=== PATIENT | male | born 1980 | race Caucasian/White ===

== ENCOUNTER 2019-08-05 15:24 | Emergency (ER) | payer OTHER, SELFPAY ==
[2019-08-05 15:32] VITALS: BP 152/79; PULSE 88; RESP 20; TEMP 36.4; O2SAT 95; BMI 54.5
[2019-08-05] MEDS: TET,DIPH,PERTUSS(ACELL),VAC/PF 0.5 ML SYRINGE IM (18:32)
--- NOTE | 2019-08-05 19:23 | ED.WOUNDLAC ---
HPI - Wound/Laceration <GINGER Barraza - Last Filed: 08/05/19 19:29> General Chief Complaint: Wound/Laceration Stated Complaint: states cut tip of thumb off right hand Time Seen by Provider: 08/05/19 18:13 Source: patient Mode of arrival: Ambulatory Limitations: no limitations History of Present Illness HPI narrative: The patient is a 39-year-old male current smoker who denies pertinent medical history presents with a chief complaint of a right thumb laceration. He accidentally sliced the tip of his right finger off while slicing meat. Does not know when his last tetanus was. He states he has full range of motion. States he is having trouble stopping the bleeding Related Data Home Medications Medication Instructions Recorded Confirmed No Known Home Medications 03/14/19 03/14/19 Previous Rx's Medication Instructions Recorded amoxicillin 875 mg-potassium 1 tab PO BID #20 tab 03/14/19 clavulanate 125 mg tablet Allergies Allergy/AdvReac Type Severity Reaction Status Date / Time bee venom protein (honey bee) Allergy Mild swelling Verified 08/05/19 15:32 where stung Review of Systems <GINGER Barraza - Last Filed: 08/05/19 19:29> Review of Systems Narrative: GENERAL: Denies chills, fatigue, malaise, fever, sweats. HEENT: Denies sinus pain, ear pain, sore throat, difficulty swallowing, dizziness. RESPIRATORY: Denies dyspnea, cough, wheezing, hemoptysis, sputum. CARDIOVASCULAR: Denies chest pain, palpitations, orthopnea, edema, GASTROINTESTINAL: Denies nausea, vomiting, abdominal pain, diarrhea, constipation, melena. : Denies dysuria, frequency, incontinence, hematuria, urinary retention. MUSCULOSKELETAL: denies weakness, joint pain, or bony pain SKIN: See HPI NEUROLOGIC: Denies weakness, headache, numbness, change in speech, confusion, seizures, incoordination. PSYCHIATRIC: No concerning psychosocial issues. 12 point review of systems is negative except for those stated above Patient History <GINGER Barraza - Last Filed: 08/05/19 19:29> Medical History (Updated 08/05/19 @ 18:41 by GINGER Barraza) Right otitis media with effusion (Acute) Social History Smoking Status: Current some day smoker Smoking Status: Current some day smoker Exam <GINGER Barraza - Last Filed: 08/05/19 19:29> Narrative Exam Narrative: GENERAL: Morbidly obese male in no acute distress HEAD: Atraumatic. Normocephalic. No temporal or scalp tenderness. EYES: Pupils equal round and reactive. Extraocular motions intact. No scleral icterus. No injection or drainage. ENT: Nose without bleeding, purulent drainage or septal hematoma.. Airway patent. CARDIOVASCULAR: Regular rate and rhythm RESPIRATORY: No cough. No increased respiratory effort. No accessory muscle use. EXTREMITIES: Full range of motion noted left thumb. Skin exam as noted. Positive right radial pulse. NEURO: AOx3. SKIN: Once 1 cm avulsion laceration noted to tip of right thumb on the fat pad. Oozing blood. Initial Vital Signs Initial Vital Signs: Vital Signs Temperature 97.5 F L 08/05/19 15:32 Pulse Rate 88 08/05/19 15:32 Respiratory Rate 08/05/19 15:32 Blood Pressure 152/79 H 08/05/19 15:32 Pulse Oximetry 95 08/05/19 15:32 <Sandro Huggins DO - Last Filed: 08/06/19 05:30> Initial Vital Signs Initial Vital Signs: Vital Signs Temperature 97.5 F L 08/05/19 15:32 Pulse Rate 88 08/05/19 15:32 Respiratory Rate 08/05/19 15:32 Blood Pressure 152/79 H 08/05/19 15:32 Pulse Oximetry 95 08/05/19 15:32 Course <GINGER Barraza - Last Filed: 08/05/19 19:29> Orders Ordered: Discontinued Medications Diphtheria/Tetanus/Acell Pertussis (Adacel) 0.5 ml IM .ONCE ONE Stop: 08/05/19 18:23 Last Admin: 08/05/19 18:32 Dose: 0.5 ml Documented by: JOSE Vital Signs Vital signs: Vital Signs - 8 hr 08/05/19 15:32 Temperature 97.5 F L Pulse Rate 88 Respiratory Rate 20 Blood Pressure 152/79 H Pulse Oximetry 95 <Sandro Huggins DO - Last Filed: 08/06/19 05:30> Orders Ordered: Discontinued Medications Diphtheria/Tetanus/Acell Pertussis (Adacel) 0.5 ml IM .ONCE ONE Stop: 08/05/19 18:23 Last Admin: 08/05/19 18:32 Dose: 0.5 ml Documented by: JOSE Vital Signs Vital signs: Vital Signs - 8 hr 08/05/19 15:32 Temperature 97.5 F L Pulse Rate 88 Respiratory Rate 20 Blood Pressure 152/79 H Pulse Oximetry 95 [facility] - Wound/Laceration <CRUZITO Barraza- - Last Filed: 08/05/19 19:29> [facility] Narrative Medical decision making narrative: The patient is a 39-year-old male who presents with a chief complaint of a finger avulsion. He declines any x-ray. Tetanus was up-to-date. Wound was dressed with Surgicel by nursing. Discussed at length monitoring for signs symptoms of infection. Patient has no questions or concerns upon discharge and states understanding return precautions as well as follow-up care. Discharge Plan Departure Patient Disposition: Home Clinical Impression: Avulsion of skin Discharge Date/Time: 08/05/19 18:59 Instructions: DI for Avulsion Laceration (Not Requiring Sutures), DI for Minor Laceration Activity Restrictions/Additional Instructions: Thank you for trusting us with your care today Today we updated your tetanus and dressed your wound Please follow-up with primary care provider in the next few days. Please monitor for sign of infection such as extending redness, purulent drainage etcetera Please come back to the emergency department for any acute concerns Prescriptions: No Action No Known Home Medications RF: 0 amoxicillin-pot clavulanate [Augmentin] 875-125 mg tablet 1 tab PO BID Qty: 20 RF: 0 Referrals: Jerman Elise MD [Primary Care Provider] - <Sandro Huggins DO - Last Filed: 08/06/19 05:30> Cosign ED Attending Ashlyature Attestation: I was immediately available in the department for consultation. This documentation has been reviewed and I agree with assessment and plan. Supervised by Sandro Huggins DO
== END 2019-08-05 18:59 | disposition home or self-care (01) ==
PROVIDERS: Emergency Provider Nurse Practitioner Family; Family Provider Family Medicine; PCP Family Medicine
DX: S61.011A Laceration without foreign body of right thumb without damage to nail, initial encounter (principal); W26.8XXA Contact with other sharp object(s), not elsewhere classified, initial encounter; Y99.0 Civilian activity done for income or pay
CPT/HCPCS: 90471; 99282; 99283; 90715

== ENCOUNTER 2022-10-09 14:32 | Emergency (ER) | payer OTHER, SELFPAY ==
[2022-10-09 14:35] VITALS: BP 143/79; PULSE 70; RESP 20; TEMP 37.1; O2SAT 96; BMI 57.7
--- NOTE | 2022-10-09 14:43 | ED_ITS ---
HPI - Abdominal Pain <Everett Horton PA-C - Last Filed: 10/09/22 17:12> General Chief Complaint: Abdominal Pain Stated Complaint: abd pain sent by [facility] Time Seen by Provider: 10/09/22 14:34 Source: patient Mode of arrival: Ambulatory History of Present Illness HPI narrative: This is a 42-year-old male presents emergency department due to abdominal pain. Patient was seen at the walk-in clinic with concerns for abdominal pain and bulging. States he is had a bulge in his abdomen for over a year. He reports multiple episodes of nausea and vomiting over the last week as well as a fever earlier this week which has since improved.. Denies any respiratory symptoms. He states that the nausea and vomiting cause him to strain more causing the abdominal bulge to worsen as well as give him some abdominal discomfort. Denies any significant abdominal pain but does report a sensation of fullness. States he used to be able to ?push it in and now? but has been unable to over the last month. Patient was sent to the emergency department for further evaluation. Last ate at 8:00 a.m. this morning. Related Data Home Medications Medication Instructions Recorded Confirmed No Known Home Medications 03/14/19 03/14/19 Previous Rx's Medication Instructions Recorded amoxicillin 875 mg-potassium 1 tab PO BID #20 tabs 03/14/19 clavulanate 125 mg tablet (Augmentin) Allergies Allergy/AdvReac Type Severity Reaction Status Date / Time bee venom protein (honey bee) Allergy Mild swelling Verified 08/05/19 15:32 where stung Review of Systems <Everett oHrton PA-C - Last Filed: 10/09/22 17:12> Review of Systems Narrative: GENERAL: Denies chills, fatigue, malaise, fever, sweats. HEENT: Denies sinus pain, ear pain, sore throat, difficulty swallowing, dizzi ness. RESPIRATORY: Denies dyspnea, cough, wheezing, hemoptysis, sputum. CARDIOVASCULAR: Denies chest pain, palpitations, orthopnea, edema, GASTROINTESTINAL: Reports abdominal bulging and discomfort, Denies nausea, vomiting, abdominal pain, diarrhea, constipation, melena. : Denies dysuria, frequency, incontinence, hematuria, urinary retention. MUSCULOSKELETAL: denies weakness, joint pain, or bony pain SKIN: Denies rash, skin lesions, or other NEUROLOGIC: Denies weakness, headache, numbness, change in speech, confusion, seizures, incoordination. PSYCHIATRIC: No concerning psychosocial issues. 12 point review of systems is negative except for those stated above Patient History <Everett Horton PA-C - Last Filed: 10/09/22 17:12> Medical History (Updated 10/09/22 @ 17:11 by Everett Horton PA-C) Right otitis media with effusion Social History Smoking Status: Current every day smoker Smoking Status: Current every day smoker tobacco type: vaping alcohol intake frequency: 0-2 drinks per day Substance Use Type: marijuana and crack/cocaine Exam <Everett Horton PA-C - Last Filed: 10/09/22 17:12> Narrative Exam Narrative: GENERAL: Well-developed patient, in mild distress. HEAD: Atraumatic. Normocephalic. EYES: Pupils equal round and reactive. Extraocular motions intact. No scleral icterus. No injection or drainage. ENT: Nose without bleeding, purulent drainage. Throat without erythema, tonsillar hypertrophy or exudate. Airway patent. NECK: Trachea midline. Non tender CARDIOVASCULAR: Regular rate and rhythm without murmurs, gallops, or rubs. RESPIRATORY: Clear to auscultation. Breath sounds equal bilaterally. No wheezes, rales, or rhonchi. GASTROINTESTINAL: Large mass to the periumbilical area. Unable to reduce. No significant abdominal tenderness to palpation. EXTREMITIES: No edema or joint tenderness. BACK: Nontender without deformity or crepitance. No flank tenderness. NEURO: AOx3. SKIN: No rash or erythema of visible areas Initial Vital Signs Initial Vital Signs: Vital Signs Temperature 98.7 F 10/09/22 14:35 Pulse Rate 70 10/09/22 14:35 Respiratory Rate 10/09/22 14:35 Blood Pressure 143/79 H 10/09/22 14:35 Pulse Oximetry 96 10/09/22 14:35 Oxygen Delivery Method Room Air 10/09/22 14:35 <Carolyne Joyce MD - Last Filed: 10/09/22 17:38> Initial Vital Signs Initial Vital Signs: Vital Signs Temperature 98.7 F 10/09/22 14:35 Pulse Rate 70 10/09/22 14:35 Respiratory Rate 20 10/09/22 14:35 Blood Pressure 143/79 H 10/09/22 14:35 Pulse Oximetry 96 10/09/22 14:35 Oxygen Delivery Method Room Air 10/09/22 14:35 Course <Everett Horton PA-C - Last Filed: 10/09/22 17:12> Orders Ordered: ED Orders 10/09/22 14:51 CT abdomen pelvis w con Stat 10/09/22 15:02 Complete Blood Count AUTO DIFF Stat Comprehensive Metabolic Panel Stat Lipase Stat Discontinued Medications Piperacillin Sod/Tazobactam (Sod 4.5 gm/ Sodium Chloride) 100 mls @ 200 mls/hr IV NOW ONE Stop: 10/09/22 16:21 Last Infusion: 10/09/22 17:10 Dose: 0 mls/hr Documented By: Admin: 10/09/22 16:37 Dose: 200 mls/hr Documented By: RILEY Vital Signs Vital signs: Vital Signs - 8 hr 10/09/22 14:35 Temperature 98.7 F Pulse Rate 70 Respiratory Rate 20 Blood Pressure 143/79 H Pulse Oximetry 96 Oxygen Delivery Method Room Air <Carolyne Joyce MD - Last Filed: 10/09/22 17:38> Orders Ordered: ED Orders 10/09/22 14:51 CT abdomen pelvis w con Stat 10/09/22 15:02 Complete Blood Count AUTO DIFF Stat Comprehensive Metabolic Panel Stat Lipase Stat Discontinued Medications Piperacillin Sod/Tazobactam (Sod 4.5 gm/ Sodium Chloride) 100 mls @ 200 mls/hr IV NOW ONE Stop: 10/09/22 16:21 Last Infusion: 10/09/22 17:10 Dose: 0 mls/hr Documented By: Admin: 10/09/22 16:37 Dose: 200 mls/hr Documented By: RILEY Vital Signs Vital signs: Vital Signs - 8 hr 10/09/22 14:35 Temperature 98.7 F Pulse Rate 70 Respiratory Rate 20 Blood Pressure 143/79 H Pulse Oximetry 96 Oxygen Delivery Method Room Air MDM - Abdominal Pain <Evertet Horton PA-C - Last Filed: 10/09/22 17:12> Lab Data 10/09/22 15:02 10/09/22 15:02 Labs: Lab Results 10/09/22 10/09/22 Range/Units 15:02 15:02 WBC 11.9 H (4.5-11.0) X10^3/uL RBC 4.98 (4.5-5.9) X10^6/uL Hgb 13.7 (13.5-17.5) g/dL Hct 41.4 (41-53) % MCV 83.0 (80-100) fL MCH 27.5 (26-34) PG MCHC 33.1 (30-36) % RDW 14.6 (11.6-14.8) % Plt Count 357 (150-400) X10^3/uL Neut % (Auto) 65.6 (50-75) % Lymph % (Auto) 25.7 (25-40) % [place] % (Auto) 7.0 (3-14) % Eos % (Auto) 0.6 L (2-4) % Baso % (Auto) 1.1 (0-2) % Neut # (Auto) 7800 H (4799-6877) /uL Lymph # (Auto) 3100 (4470-7476) /uL Baldwin # (Auto) 800 (0-900) /uL Eos # (Auto) 100 (0-450) /uL Baso # (Auto) 100 (0-100) /uL Sodium 139 (137-145) mmol/L Potassium 3.7 (3.4-5.1) mmol/L Chloride 103 (98-107) mmol/L Carbon Dioxide 27 (22-32) mmol/L BUN 15 (9-20) mg/dL Creatinine 0.66 (0.66-1.25) mg/dL Estimated GFR > 60 (>60) mL/min BUN/Creatinine Ratio 22.7 H (6-22) Glucose 101 H (70-100) mg/dL Calcium 9.5 (8.4-10.2) mg/dL Total Bilirubin 0.5 (0.2-1.3) mg/dL AST 28 (17-59) IU/L ALT 31 (<50) IU/L Alkaline Phosphatase 55 (38-126) U/L Total Protein 7.8 (6.3-8.2) g/dL Albumin 4.2 (3.5-5.0) g/dL Globulin 3.6 (1.7-4.1) g/dL Albumin/Globulin Ratio 1.2 (1.0-2.8) Lipase 35 (23-300) U/L Point of care testing: Urine Dip Bedside Urine Glucose Negative Bedside Urine Bilirubin - Negative Bedside Urine Ketone - Negative Urine Specific [place] 1.015 Bedside Urine Occult Blood - Negative Bedside Urine pH 6 Bedside Urine Protein - Negative Bedside Urine Urobilinogen - Negative Bedside Urine Nitrite - Negative Bedside Urine Leukocytes - Negative Esterase Imaging Data CT scan - abdomen/pelvis: Radiologist's Impression: [address] [address] [address] Scan Report Signed Patient: Cristopher Álvarez MR#: [id number] : 1980 Acct:[id number] Age/Sex: 42 / M Date of Service: 10/09/22 Loc: ED Accession Number: [id number] ?? Procedure: CT abdomen pelvis w con Ordering Provider: Everett Horton P.A-C PROCEDURE:? CT ABDOMEN PELVIS W CON ? INDICATIONS:? Suspected abdominal hernia ? TECHNIQUE:? After the administration of intravenous contrast, axial sections acquired from the lung bases to the pubic symphysis.? Coronal and sagittal reformats were performed.? For radiation dose reduction, the following was used:? automated exposure control, adjustment of mA and/or kV according to patient size.? ? COMPARISON:? None. ? FINDINGS:? Image quality:? Excellent.? ? Lung bases:? Unremarkable. Heart:? No significant findings. ? ABDOMEN: Liver:? Unremarkable.? ? Gallbladder:? Unremarkable.? ? Biliary ducts:? Unremarkable.? ? Pancreas:? Unremarkable.? ? Spleen:? Unremarkable.? ? Adrenal Glands:? Unremarkable.? ? Kidneys and Ureters:? Unremarkable.? ? ? Stomach and Bowel:? No dilated loops of bowel.? There is a wide ventral abdominal wall hernia which contains potentially inflamed bowel with inflammation and fluid in the surrounding fat.? There is mild sigmoid diverticulosis without evidence of diverticulitis. Peritoneum:? No abnormal intraperitoneal fluid.? No free air.? ? Ventral Wall: ? There is a wide mouth ventral wall hernia, the defect of which measures approximately 6.4 x 7.4 cm. However, the loops of bowel within the hernia appears to potentially be inflamed with inflammation in the surrounding fat.? Consider incarcerated bowel containing hernia. Abdominal Nodes:? No retroperitoneal or mesenteric adenopathy by size criteria.? Vessels:? Aorta and inferior vena cava are normal in size.? ? PELVIS: Pelvic Organs:? Unremarkable.? ? Bladder:? Unremarkable.? ? Pelvic Nodes: No enlarged lymph nodes.? Miscellaneous: No hernias are seen. ? ? ? Bones:? Lumbar degenerative change.? No lytic or blastic bony lesions.? No compression fractures. ? IMPRESSION:? ? 1. Wide midline ventral anterior abdominal wall hernia which may contain incarcerated bowel, which has a somewhat inflamed appearance with surrounding inflammation in the adjacent fat and associated fluid. ? ? Dictated by: Azeem Rodarte M.D. on 10/09/2022 at 16:03 ? ? Approved by: Azeem Rodarte M.D. on 10/09/2022 at 16:06 ? MDM Narrative Medical decision making narrative: MDM * differential diagnosis includes but not limited to reducible hernia, incarcerated hernia, strangulated hernia * Prior records reviewed: Please see above in HPI * My lab interpretation: CBC showed leukocytosis 11 with elevated neutrophils. CMP unremarkable. Lipase. * My imaging interpretation: CT showed the abdominal wall hernia suggestions of incarceration as well as inflammation. * Clinical Decision Rules/Scores evaluated: None * Independent discussions with: None ED Course: This is a 42-year-old male presents emergency department due to a worsening abdominal wall hernia. CT ordered which showed possible incarceration with inflammation. Zosyn given. Patient did have a mild leukocytosis. Dr. Cabrera, general surgeon, was consulted and saw the patient and recommended discontinuing the Zosyn and have him follow up outpatient in his clinic. Shared Decision Making: Discussed plan with patient who is comfortable with the plan. Social Considerations: None Disposition: Discharged home <Carolyne Joyce MD - Last Filed: 10/09/22 17:38> Lab Data Labs: Lab Results 10/09/22 10/09/22 Range/Units 15:02 15:02 WBC 11.9 H (4.5-11.0) X10^3/uL RBC 4.98 (4.5-5.9) X10^6/uL Hgb 13.7 (13.5-17.5) g/dL Hct 41.4 (41-53) % MCV 83.0 (80-100) fL MCH 27.5 (26-34) PG MCHC 33.1 (30-36) % RDW 14.6 (11.6-14.8) % Plt Count 357 (150-400) X10^3/uL Neut % (Auto) 65.6 (50-75) % Lymph % (Auto) 25.7 (25-40) % Baldwin % (Auto) 7.0 (3-14) % Eos % (Auto) 0.6 L (2-4) % Baso % (Auto) 1.1 (0-2) % Neut # (Auto) 7800 H (9980-7916) /uL Lymph # (Auto) 3100 (9429-4031) /uL Baldwin # (Auto) 800 (0-900) /uL Eos # (Auto) 100 (0-450) /uL Baso # (Auto) 100 (0-100) /uL Sodium 139 (137-145) mmol/L Potassium 3.7 (3.4-5.1) mmol/L Chloride 103 (98-107) mmol/L Carbon Dioxide 27 (22-32) mmol/L BUN 15 (9-20) mg/dL Creatinine 0.66 (0.66-1.25) mg/dL Estimated GFR > 60 (>60) mL/min BUN/Creatinine Ratio 22.7 H (6-22) Glucose 101 H (70-100) mg/dL Calcium 9.5 (8.4-10.2) mg/dL Total Bilirubin 0.5 (0.2-1.3) mg/dL AST 28 (17-59) IU/L ALT 31 (<50) IU/L Alkaline Phosphatase 55 (38-126) U/L Total Protein 7.8 (6.3-8.2) g/dL Albumin 4.2 (3.5-5.0) g/dL Globulin 3.6 (1.7-4.1) g/dL Albumin/Globulin Ratio 1.2 (1.0-2.8) Lipase 35 (23-300) U/L Point of care testing: Urine Dip Bedside Urine Glucose Negative Bedside Urine Bilirubin - Negative Bedside Urine Ketone - Negative Urine Specific [place] 1.015 Bedside Urine Occult Blood - Negative Bedside Urine pH 6 Bedside Urine Protein - Negative Bedside Urine Urobilinogen - Negative Bedside Urine Nitrite - Negative Bedside Urine Leukocytes - Negative Esterase Discharge Plan Departure Patient Disposition: Home Clinical Impression: Hernia Instructions: DI for Hiatal Hernia Activity Restrictions/Additional Instructions: Thank you for coming to the [facility] Emergency Department today. I am glad that our general surgeon was able to speak she is today. Please follow the directions he provided. You may follow-up in his clinic if you would like to discuss further steps regarding your hernia. I hope you feel better soon. Please follow up with your primary care provider within a week. If you do not have a primary care provider please contact the [facility] MOgene line at [phone]. They will ask some questions about your medical history and help you get set up with a provider in the community. Prescriptions: No Action No Known Home Medications amoxicillin-pot clavulanate [Augmentin] 875-125 mg tablet 1 tab PO BID Qty: 20 0RF Referrals: Jerman Elise MD [Primary Care Provider] - Bam Cabrera MD [Physician] - (f/u hiatal hernia ) Stand Alone Forms: Patient Portal/API <Carolyne Joyce MD - Last Filed: 10/09/22 17:38> Cosign ED Attending Cosignature Attestation: Case discussed with general surgery. Abdomen is soft, no need for emergent surgery. Outpatient surgery can be performed at patient convenience after scheduling appointment.
--- NOTE | 2022-10-09 14:51 | DI.CT.S_ITS ---
PROCEDURE: CT ABDOMEN PELVIS W CON INDICATIONS: Suspected abdominal hernia TECHNIQUE: After the administration of intravenous contrast, axial sections acquired from the lung bases to the pubic symphysis. Coronal and sagittal reformats were performed. For radiation dose reduction, the following was used: automated exposure control, adjustment of mA and/or kV according to patient size. COMPARISON: None. FINDINGS: Image quality: Excellent. Lung bases: Unremarkable. Heart: No significant findings. ABDOMEN: Liver: Unremarkable. Gallbladder: Unremarkable. Biliary ducts: Unremarkable. Pancreas: Unremarkable. Spleen: Unremarkable. Adrenal Glands: Unremarkable. Kidneys and Ureters: Unremarkable. Stomach and Bowel: No dilated loops of bowel. There is a wide ventral abdominal wall hernia which contains potentially inflamed bowel with inflammation and fluid in the surrounding fat. There is mild sigmoid diverticulosis without evidence of diverticulitis. Peritoneum: No abnormal intraperitoneal fluid. No free air. Ventral Wall: There is a wide mouth ventral wall hernia, the defect of which measures approximately 6.4 x 7.4 cm. However, the loops of bowel within the hernia appears to potentially be inflamed with inflammation in the surrounding fat. Consider incarcerated bowel containing hernia. Abdominal Nodes: No retroperitoneal or mesenteric adenopathy by size criteria. Vessels: Aorta and inferior vena cava are normal in size. PELVIS: Pelvic Organs: Unremarkable. Bladder: Unremarkable. Pelvic Nodes: No enlarged lymph nodes. Miscellaneous: No hernias are seen. Bones: Lumbar degenerative change. No lytic or blastic bony lesions. No compression fractures. IMPRESSION: 1. Wide midline ventral anterior abdominal wall hernia which may contain incarcerated bowel, which has a somewhat inflamed appearance with surrounding inflammation in the adjacent fat and associated fluid. Dictated by: Azeem Rodarte M.D. on 10/09/2022 at 16:03 Approved by: Azeem Rodarte M.D. on 10/09/2022 at 16:06
[2022-10-09 15:09] LABS: Add Manual Diff / Slide Review NO; Basophils Absolute Auto 100 /uL (0-100); Basophils Percent Auto 1.1 % (0-2); Eosinophils Absolute Auto 100 /uL (0-450); Eosinophils Percent Auto 0.6 % (2-4); Hematocrit 41.4 % (41-53); Hemoglobin 13.7 g/dL (13.5-17.5); Lymphocytes Absolute Auto 3100 /uL (1100-4500); Lymphocytes Percent Auto 25.7 % (25-40); Mean Corpuscular HGB Conc 33.1 % (30-36); Mean Corpuscular Hemoglobin 27.5 PG (26-34); Monocytes Absolute Auto 800 /uL (0-900); Neutrophils Absolute Auto 7800 /uL (1500-7000); Neutrophils Percent Auto 65.6 % (50-75); Platelet Count 357 X10^3/uL (150-400); Red Blood Cell Count 4.98 X10^6/uL (4.5-5.9); Red Cell Distribution Width 14.6 % (11.6-14.8); White Blood Cell Count 11.9 X10^3/uL (4.5-11.0)
[2022-10-09 15:36] LABS: Alanine Aminotransferase 31 IU/L (<50); Albumin 4.2 g/dL (3.5-5.0); Albumin Globulin Ratio 1.2 (1.0-2.8); Alkaline Phosphatase 55 U/L (38-126); Aspartate Aminotransferase 28 IU/L (17-59); BUN Creatinine Ratio 22.7 (6-22); Bilirubin Total 0.5 mg/dL (0.2-1.3); Blood Urea Nitrogen 15 mg/dL (9-20); Calcium 9.5 mg/dL (8.4-10.2); Carbon Dioxide 27 mmol/L (22-32); Chloride 103 mmol/L (98-107); Estimated Glomerular Filt Rate > 60 mL/min (>60); Globulin 3.6 g/dL (1.7-4.1); Glucose 101 mg/dL (70-100); HEMOLYSIS < 15 (0-50); Lipase 35 U/L (23-300); Potassium 3.7 mmol/L (3.4-5.1); Sodium 139 mmol/L (137-145); Total Protein 7.8 g/dL (6.3-8.2)
[2022-10-09] MEDS: PIPERACILLIN/TAZO 4.5 GM in SODIUM CHLORIDE 0.9% 100 ML IV (16:37)
== END 2022-10-09 17:29 | disposition home or self-care (01) ==
PROVIDERS: Emergency Provider Physician Assistant Medical; Family Provider Family Medicine; PCP Family Medicine
DX: K44.9 Diaphragmatic hernia without obstruction or gangrene (principal); R11.2 Nausea with vomiting, unspecified
CPT/HCPCS: 74177; 80053; 81003; 83690; 85025; 96365; 99283; 99284; J2543; Q9967